=== PATIENT | male | born 1960 | race Caucasian/White ===

== ENCOUNTER 2024-04-16 12:33 | Inpatient (IN) | payer OTHER ==
[~2024-04-16] VITALS: Ht 172.7 cm; Wt 69.9 kg
[2024-04-16] MEDS ORDERED: CARV6.252 PO (20:54)
[2024-04-16] MEDS ORDERED: insulin regular (20:54)
[2024-04-16] MEDS ORDERED: SACU1TAB PO (20:54)
[2024-04-16] MEDS ORDERED: PANT40VI IV (20:54)
[2024-04-16] MEDS ORDERED: MAG-82 PO (20:54)
[2024-04-16] MEDS ORDERED: MAGN400O6 PO (20:54)
[2024-04-16] MEDS ORDERED: ZOFRAN INJ IVP (20:54)
[2024-04-16] MEDS ORDERED: accucheck (20:54)
[2024-04-16] MEDS ORDERED: ACET325T53 PO (20:54)
[2024-04-16] MEDS ORDERED: EMPA25TA PO (20:54)
[2024-04-16] MEDS ORDERED: ATOR80TA PO (20:54)
[2024-04-16] MEDS ORDERED: [UNRECOGNIZED DRUG - OTHER] IVP (20:54)
[2024-04-16] MEDS ORDERED: GEMF600T PO (20:54)
[2024-04-17] MEDS: HYDROCODONE/APAP 5-325MG TABLET PO PRN (00:08)
[2024-04-17] MEDS ORDERED: REMEDY ESSENTIAL ZINC PASTE 113 GM TOP PRN (03:30)
[2024-04-17 06:02] VITALS: BP 115/61; TEMP 97.9; O2SAT 97
[2024-04-17] MEDS ORDERED: LIDO30AD10 TD (06:39)
[2024-04-17] MEDS ORDERED: MAG HYDROX/AL HYDROX/SIMETH 30 ML LIQUID UDC PO PRN (07:00)
[2024-04-17] MEDS ORDERED: ONDANSETRON 4 MG/2 ML VIAL IV PRN (07:00)
[2024-04-17] MEDS ORDERED: ACETAMINOPHEN 325 MG TABLET-SA PATIENTS-PAIN ONLY PO PRN (07:00)
[2024-04-17] MEDS ORDERED: MAGNESIUM HYDROXIDE 30 ML LIQUID UDC PO PRN ×2 (07:00→16:15)
[2024-04-17] MEDS ORDERED: HOME MED MISCELLANEOUS XX SCH ×2 (07:00)
[2024-04-17] MEDS ORDERED: DEXTROSE 50% 50 ML DISP.SYRIN IV PRN (07:00)
[2024-04-17] MEDS: BLOOD SUGAR DIAGNOSTIC 1 EACH STRIP VI SCH (08:21)
[2024-04-17] MEDS: INSULIN REGULAR, HUMAN 300 UNIT/3 ML VIAL SQ PRN (08:23)
[2024-04-17] MEDS ORDERED: LIDOCAINE 5% PATCH TD SCH (09:00)
[2024-04-17] MEDS: CARVEDILOL 6.25 MG TABLET PO SCH (09:38)
[2024-04-17] MEDS: GEMFIBROZIL 600 MG TABLET PO SCH (09:38)
[2024-04-17] MEDS: ACETAMINOPHEN 325 MG TABLET PO PRN (09:38)
[2024-04-17] MEDS: EMPAGLIFLOZIN 25 MG TABLET PO SCH (09:39)
[2024-04-17] MEDS: SACUBITRIL/VALSARTAN 24 MG-26 TABLET PO SCH (09:39)
[2024-04-17] MEDS: LIDOCAINE 5% PATCH TD SCH (12:44)
[2024-04-17] MEDS ORDERED: ERTU15TA PO (15:09)
[2024-04-17] MEDS ORDERED: ROSU40TA PO (15:09)
[2024-04-17] MEDS ORDERED: DIPH50CA38 PO (15:09)
[2024-04-17] MEDS ORDERED: INSU100V28 SQ (15:09)
[2024-04-17] MEDS ORDERED: LORA10TA64 PO (15:09)
[2024-04-17] MEDS ORDERED: KETO30VI4 IM (15:09)
[2024-04-17] MEDS ORDERED: INSU100V7 SQ (15:09)
[2024-04-17] MEDS ORDERED: FURO80TA3 PO (15:09)
[2024-04-17] MEDS ORDERED: SPIR50TA5 PO (15:09)
[2024-04-17] MEDS ORDERED: CLOP75TA33 PO (15:12)
[2024-04-17] MEDS ORDERED: APIX2.5T PO (15:45)
[2024-04-17 15:58] VITALS: BP 95/53; TEMP 97.5; O2SAT 98
[2024-04-17] MEDS ORDERED: hydrALAZINE HCL 25 MG TABLET PO PRN (16:15)
[2024-04-17 19:05] LABS: BASOPHILS % (AUTO) 0.8 % (0.0-2.0); EOSINOPHILS # (AUTO) 0.2 K/uL (0.0-0.7); EOSINOPHILS % (AUTO) 3.7 % (0.0-7.0); HEMATOCRIT 35.6 % (36.7-47.1); HEMOGLOBIN 11.9 g/dL (12.5-16.3); LYMPHOCYTES # (AUTO) 1.2 K/uL (0.8-4.8); LYMPHOCYTES % (AUTO) 22.6 % (20.5-51.5); MEAN CORPUSCULAR HEMOGLOBIN 30.6 uug (23.8-33.4); MEAN CORPUSCULAR HGB CONC 34 g/dL (32.5-36.3); MEAN CORPUSCULAR VOLUME 91.2 fL (73.0-96.2); MONOCYTES # (AUTO) 0.5 K/uL (0.1-1.30); MONOCYTES % (AUTO) 10.1 % (0.0-11.0); NEUTROPHILS # (AUTO) 3.3 K/uL (1.8-8.9); NEUTROPHILS % (AUTO) 62.8 % (38.5-71.5); PLATELET COUNT (AUTO) 174 K/uL (152-348); RED CELL DISTRIBUTION WIDTH 14.3 % (12.1-16.2); WHITE BLOOD COUNT (AUTO) 5.2 K/uL (3.6-10.2)
[2024-04-17 19:06] LABS: DIFFERENTIAL COMMENT 1
[2024-04-17 19:18] LABS: MAGNESIUM 2.4 mg/dL (1.8-2.4); PHOSPHOROUS 4.7 mg/dL (2.5-4.9)
[2024-04-17] MEDS: APIXABAN 2.5 MG TABLET PO SCH (20:34)
[2024-04-17] MEDS: ATORVASTATIN 40 MG TABLET PO SCH (20:35)
[2024-04-17] MEDS: INSULIN GLARGINE,HUM 300 UNITS/3 ML CARTRIDGE SQ SCH (20:50)
[2024-04-17 23:03] VITALS: BP 115/61; TEMP 97.8; O2SAT 95
[2024-04-18 04:59] VITALS: BP 117/52; TEMP 98; O2SAT 98
[2024-04-18 07:18] LABS: BASOPHILS % (AUTO) 0.7 % (0.0-2.0); EOSINOPHILS # (AUTO) 0.2 K/uL (0.0-0.7); HEMATOCRIT 39.1 % (36.7-47.1); HEMOGLOBIN 13.6 g/dL (12.5-16.3); LYMPHOCYTES # (AUTO) 1.2 K/uL (0.8-4.8); LYMPHOCYTES % (AUTO) 24.4 % (20.5-51.5); MEAN CORPUSCULAR HEMOGLOBIN 31.5 uug (23.8-33.4); MEAN CORPUSCULAR HGB CONC 35 g/dL (32.5-36.3); MEAN CORPUSCULAR VOLUME 90.5 fL (73.0-96.2); MONOCYTES # (AUTO) 0.4 K/uL (0.1-1.30); MONOCYTES % (AUTO) 8.5 % (0.0-11.0); NEUTROPHILS # (AUTO) 3.2 K/uL (1.8-8.9); NEUTROPHILS % (AUTO) 62.4 % (38.5-71.5); PLATELET COUNT (AUTO) 206 K/uL (152-348); RED BLOOD CELL COUNT(AUTO) 4.32 MIL/uL (4.06-5.63); WHITE BLOOD COUNT (AUTO) 5.1 K/uL (3.6-10.2)
[2024-04-18 07:33] LABS: DIFFERENTIAL COMMENT 1
[2024-04-18 07:43] LABS: ALBUMIN 3.1 g/dL (3.4-5.0); CALCIUM 8.4 mg/dL (8.5-10.1); CREATININE 2.1 mg/dL (0.6-1.3); MAGNESIUM 2.5 mg/dL (1.8-2.4); PHOSPHOROUS 4.3 mg/dL (2.5-4.9); TOTAL PROTEIN, SERUM 6.8 g/dL (6.4-8.2)
[2024-04-18 07:56] LABS: THYROID STIMULATING HORMONE 2.221 mIU/mL (0.358-3.740)
[2024-04-18 08:16] VITALS: BP 116/70; TEMP 97.5; O2SAT 97
[2024-04-18] MEDS: CLOPIDOGREL 75 MG TABLET PO SCH (09:22)
[2024-04-18] MEDS: PANTOPRAZOLE SODIUM 40 MG TABLET.DR PO SCH (09:22)
[2024-04-18 11:40] VITALS: BP 117/63; TEMP 97.4; O2SAT 97
[2024-04-18] MEDS: ACETAMINOPHEN ES 500 MG TABLET PO PRN (11:55)
[2024-04-18 15:49] VITALS: BP 114/63; TEMP 98.3; O2SAT 95
[2024-04-18] MEDS ORDERED: TRAMADOL HCL 50 MG TABLET PO PRN (18:30)
[2024-04-18] MEDS: TRAMADOL HCL 50 MG TABLET PO PRN (18:55)
[2024-04-18 20:00] VITALS: BP 112/62; TEMP 97.5; O2SAT 97
[2024-04-19 05:30] VITALS: BP 115/47; TEMP 97.9; O2SAT 99
[2024-04-19 05:46] VITALS: BP 112/61; O2SAT 96
[2024-04-19 07:59] VITALS: BP 117/65; TEMP 97.6; O2SAT 100
[2024-04-19] MEDS: CARVEDILOL 3.125 MG TABLET PO SCH (09:07)
[2024-04-19] MEDS: SPIRONOLACTONE 25 MG TABLET PO SCH (09:10)
[2024-04-19] MEDS: FUROSEMIDE 40 MG TABLET PO SCH (10:21)
[2024-04-19 16:43] VITALS: BP 112/57; TEMP 98.4; O2SAT 96
[2024-04-19 22:01] VITALS: BP 126/68; TEMP 97.5; O2SAT 95
[2024-04-19] MEDS: LIDOCAINE 5% PATCH TD SCH (22:08)
[2024-04-20] MEDS: TRAMADOL HCL 50 MG TABLET PO PRN (00:19)
[2024-04-20 05:38] VITALS: BP 115/58; TEMP 97.8; O2SAT 97
[2024-04-20 06:12] LABS: BASOPHILS % (AUTO) 0.7 % (0.0-2.0); EOSINOPHILS # (AUTO) 0.2 K/uL (0.0-0.7); EOSINOPHILS % (AUTO) 2.9 % (0.0-7.0); HEMATOCRIT 37.6 % (36.7-47.1); HEMOGLOBIN 12.9 g/dL (12.5-16.3); LYMPHOCYTES % (AUTO) 19.4 % (20.5-51.5); MEAN CORPUSCULAR HGB CONC 34 g/dL (32.5-36.3); MEAN CORPUSCULAR VOLUME 90.6 fL (73.0-96.2); MONOCYTES # (AUTO) 0.6 K/uL (0.1-1.30); MONOCYTES % (AUTO) 11.7 % (0.0-11.0); NEUTROPHILS # (AUTO) 3.4 K/uL (1.8-8.9); NEUTROPHILS % (AUTO) 65.3 % (38.5-71.5); PLATELET COUNT (AUTO) 235 K/uL (152-348); RED BLOOD CELL COUNT(AUTO) 4.15 MIL/uL (4.06-5.63); RED CELL DISTRIBUTION WIDTH 14.3 % (12.1-16.2); WHITE BLOOD COUNT (AUTO) 5.2 K/uL (3.6-10.2)
[2024-04-20 06:21] LABS: DIFFERENTIAL COMMENT 1
[2024-04-20 06:29] LABS: CALCIUM 8.1 mg/dL (8.5-10.1); CREATININE 2.1 mg/dL (0.6-1.3); MAGNESIUM 2.4 mg/dL (1.8-2.4); POTASSIUM 4.4 mmol/L (3.5-5.1); TOTAL PROTEIN, SERUM 6.6 g/dL (6.4-8.2)
[2024-04-20] MEDS: FUROSEMIDE 40 MG TABLET PO SCH (08:59)
[2024-04-20 09:00] VITALS: BP 119/68; TEMP 98.2; O2SAT 97
[2024-04-20 16:40] VITALS: BP 116/51; TEMP 98.3; O2SAT 98
[2024-04-20] MEDS: CARVEDILOL 6.25 MG TABLET PO SCH (17:44)
[2024-04-20] MEDS ORDERED: CARVEDILOL 3.125 MG TABLET PO SCH (18:00)
[2024-04-20 20:00] VITALS: BP 103/45; TEMP 98.1; O2SAT 95
[2024-04-21 06:50] VITALS: BP 108/56; TEMP 98.6; O2SAT 99
[2024-04-21 08:00] VITALS: BP 107/46; TEMP 98.1; O2SAT 99
[2024-04-21 16:21] VITALS: BP 122/60; TEMP 98.6; O2SAT 98
[2024-04-21 20:36] VITALS: BP 121/62; TEMP 98.2; O2SAT 96
[2024-04-21] MEDS: BLOOD SUGAR DIAGNOSTIC 1 EACH STRIP VI SCH (23:00)
[2024-04-21] MEDS ORDERED: DEXTROSE 50% 50 ML DISP.SYRIN IV PRN (23:00)
[2024-04-22 06:11] VITALS: BP 115/57; TEMP 98.4; O2SAT 97
[2024-04-22 10:28] LABS: CALCIUM 8.8 mg/dL (8.5-10.1); CREATININE 2.1 mg/dL (0.6-1.3); POTASSIUM 4.4 mmol/L (3.5-5.1)
[2024-04-22] MEDS: FUROSEMIDE 40 MG TABLET PO ONE (14:23)
[2024-04-22] MEDS: HYDROCODONE/APAP 10-325 MG TABLET PO PRN (14:24)
[2024-04-22] MEDS ORDERED: MIRALAX 17 GM POWD.PACK PO PRN (15:00)
[2024-04-22 16:00] VITALS: BP 123/63; TEMP 98.3; O2SAT 97
[2024-04-22 19:55] VITALS: BP 96/51; TEMP 97.7; O2SAT 96
[2024-04-22] MEDS: INSULIN REGULAR, HUMAN 300 UNIT/3 ML VIAL SQ PRN (22:20)
[2024-04-23 05:34] VITALS: BP 119/53; TEMP 98.1; O2SAT 100
[2024-04-23 07:39] LABS: BASOPHILS % (AUTO) 0.7 % (0.0-2.0); EOSINOPHILS # (AUTO) 0.2 K/uL (0.0-0.7); EOSINOPHILS % (AUTO) 3.2 % (0.0-7.0); HEMATOCRIT 35.2 % (36.7-47.1); HEMOGLOBIN 12.2 g/dL (12.5-16.3); LYMPHOCYTES # (AUTO) 1.1 K/uL (0.8-4.8); LYMPHOCYTES % (AUTO) 23.3 % (20.5-51.5); MEAN CORPUSCULAR HEMOGLOBIN 30.9 uug (23.8-33.4); MEAN CORPUSCULAR HGB CONC 35 g/dL (32.5-36.3); MEAN CORPUSCULAR VOLUME 89.2 fL (73.0-96.2); MONOCYTES # (AUTO) 0.7 K/uL (0.1-1.30); MONOCYTES % (AUTO) 14.8 % (0.0-11.0); NEUTROPHILS # (AUTO) 2.8 K/uL (1.8-8.9); PLATELET COUNT (AUTO) 268 K/uL (152-348); RED BLOOD CELL COUNT(AUTO) 3.95 MIL/uL (4.06-5.63); WHITE BLOOD COUNT (AUTO) 4.9 K/uL (3.6-10.2)
[2024-04-23 07:40] LABS: DIFFERENTIAL COMMENT 1
[2024-04-23 07:47] LABS: ALBUMIN 3.1 g/dL (3.4-5.0); BILIRUBIN,TOTAL 1.2 mg/dL (0.2-1.0); CALCIUM 9.1 mg/dL (8.5-10.1); CREATININE 2.5 mg/dL (0.6-1.3); MAGNESIUM 2.2 mg/dL (1.8-2.4); POTASSIUM 4.2 mmol/L (3.5-5.1); TOTAL PROTEIN, SERUM 6.8 g/dL (6.4-8.2)
[2024-04-23 16:00] VITALS: BP 110/52; TEMP 98; O2SAT 98
[2024-04-23 21:02] VITALS: BP 110/59; TEMP 97.8; O2SAT 98
[2024-04-24 04:00] VITALS: BP 117/56; TEMP 98.2; O2SAT 98
[2024-04-24 08:30] VITALS: BP 121/61; TEMP 97.5; O2SAT 97
[2024-04-24 11:10] LABS: BASOPHILS % (AUTO) 0.5 % (0.0-2.0); EOSINOPHILS # (AUTO) 0.1 K/uL (0.0-0.7); HEMATOCRIT 36.4 % (36.7-47.1); HEMOGLOBIN 12.8 g/dL (12.5-16.3); LYMPHOCYTES % (AUTO) 18.7 % (20.5-51.5); MEAN CORPUSCULAR HEMOGLOBIN 31.2 uug (23.8-33.4); MEAN CORPUSCULAR HGB CONC 35 g/dL (32.5-36.3); MEAN CORPUSCULAR VOLUME 88.9 fL (73.0-96.2); MONOCYTES # (AUTO) 0.5 K/uL (0.1-1.30); NEUTROPHILS # (AUTO) 3.8 K/uL (1.8-8.9); NEUTROPHILS % (AUTO) 68.8 % (38.5-71.5); PLATELET COUNT (AUTO) 309 K/uL (152-348); RED CELL DISTRIBUTION WIDTH 14.1 % (12.1-16.2); WHITE BLOOD COUNT (AUTO) 5.5 K/uL (3.6-10.2)
[2024-04-24 11:14] LABS: DIFFERENTIAL COMMENT 1
[2024-04-24 11:19] LABS: ALBUMIN 3.5 g/dL (3.4-5.0); BILIRUBIN,TOTAL 0.9 mg/dL (0.2-1.0); CREATININE 2.9 mg/dL (0.6-1.3); MAGNESIUM 2.3 mg/dL (1.8-2.4); PHOSPHOROUS 5.8 mg/dL (2.5-4.9); POTASSIUM 4.1 mmol/L (3.5-5.1); TOTAL PROTEIN, SERUM 7.4 g/dL (6.4-8.2)
[2024-04-24 16:39] VITALS: BP 94/39; TEMP 97.7; O2SAT 98
[2024-04-24 20:01] VITALS: BP 101/43; TEMP 97.7; O2SAT 98
[2024-04-25 04:40] VITALS: BP 113/54; TEMP 97.8; O2SAT 97
[2024-04-25 07:07] LABS: BASOPHILS % (AUTO) 0.6 % (0.0-2.0); EOSINOPHILS # (AUTO) 0.1 K/uL (0.0-0.7); EOSINOPHILS % (AUTO) 1.4 % (0.0-7.0); HEMOGLOBIN 12.1 g/dL (12.5-16.3); LYMPHOCYTES # (AUTO) 0.9 K/uL (0.8-4.8); LYMPHOCYTES % (AUTO) 15.9 % (20.5-51.5); MEAN CORPUSCULAR HEMOGLOBIN 30.8 uug (23.8-33.4); MEAN CORPUSCULAR HGB CONC 35 g/dL (32.5-36.3); MEAN CORPUSCULAR VOLUME 89.2 fL (73.0-96.2); MONOCYTES # (AUTO) 0.8 K/uL (0.1-1.30); MONOCYTES % (AUTO) 13.2 % (0.0-11.0); NEUTROPHILS # (AUTO) 3.9 K/uL (1.8-8.9); NEUTROPHILS % (AUTO) 68.9 % (38.5-71.5); PLATELET COUNT (AUTO) 297 K/uL (152-348); RED BLOOD CELL COUNT(AUTO) 3.93 MIL/uL (4.06-5.63); RED CELL DISTRIBUTION WIDTH 14.1 % (12.1-16.2); WHITE BLOOD COUNT (AUTO) 5.7 K/uL (3.6-10.2)
[2024-04-25 07:13] LABS: DIFFERENTIAL COMMENT 1
[2024-04-25 07:28] LABS: ALANINE AMINOTRANSFERASE < 6 U/L (16-63); ALBUMIN 3.3 g/dL (3.4-5.0); ALKALINE PHOSPHATASE 124 U/L (50-136); ASPARTATE AMINOTRANSFERASE 14 U/L (15-37); BILIRUBIN,TOTAL 0.8 mg/dL (0.2-1.0); CALCIUM 9.3 mg/dL (8.5-10.1); CARBON DIOXIDE 28 mmol/L (21-32); CHLORIDE 94 mmol/L (98-107); CREATINE KINASE, TOTAL 93 U/L (39-308); CREATININE 2.7 mg/dL (0.6-1.3); GLUCOSE 196 mg/dL (74-106); MAGNESIUM 2.4 mg/dL (1.8-2.4); PHOSPHOROUS 5.7 mg/dL (2.5-4.9); POTASSIUM 3.9 mmol/L (3.5-5.1); SODIUM SERUM 134 mmol/L (136-145); TOTAL PROTEIN, SERUM 7.2 g/dL (6.4-8.2); UREA NITROGEN, BLOOD 60 mg/dL (7-18)
[2024-04-25 08:14] VITALS: BP 122/62; TEMP 98.3; O2SAT 95
[2024-04-25 16:00] VITALS: BP 118/49; TEMP 98.5; O2SAT 98
[2024-04-25] MEDS: TRAMADOL HCL 50 MG TABLET PO PRN (17:50)
[2024-04-25 22:53] VITALS: BP 89/38; TEMP 98.3; O2SAT 98
[2024-04-26 00:15] VITALS: BP 115/58; TEMP 98.6; O2SAT 100
[2024-04-26 05:31] VITALS: BP 106/57; TEMP 98.4; O2SAT 97
[2024-04-26 08:20] VITALS: BP 106/43; TEMP 97.5; O2SAT 98
[2024-04-26 10:57] LABS: BASOPHILS % (AUTO) 0.6 % (0.0-2.0); EOSINOPHILS # (AUTO) 0.1 K/uL (0.0-0.7); HEMATOCRIT 36.7 % (36.7-47.1); HEMOGLOBIN 12.7 g/dL (12.5-16.3); LYMPHOCYTES # (AUTO) 1.1 K/uL (0.8-4.8); MEAN CORPUSCULAR HEMOGLOBIN 31.1 uug (23.8-33.4); MEAN CORPUSCULAR HGB CONC 35 g/dL (32.5-36.3); MEAN CORPUSCULAR VOLUME 89.8 fL (73.0-96.2); MONOCYTES # (AUTO) 0.8 K/uL (0.1-1.30); MONOCYTES % (AUTO) 11.8 % (0.0-11.0); NEUTROPHILS # (AUTO) 4.8 K/uL (1.8-8.9); NEUTROPHILS % (AUTO) 69.6 % (38.5-71.5); PLATELET COUNT (AUTO) 312 K/uL (152-348); RED BLOOD CELL COUNT(AUTO) 4.09 MIL/uL (4.06-5.63); RED CELL DISTRIBUTION WIDTH 13.9 % (12.1-16.2); WHITE BLOOD COUNT (AUTO) 6.9 K/uL (3.6-10.2)
[2024-04-26 11:02] LABS: DIFFERENTIAL COMMENT 1
[2024-04-26 11:10] LABS: CALCIUM 9.2 mg/dL (8.5-10.1); CREATININE 2.6 mg/dL (0.6-1.3); POTASSIUM 4.1 mmol/L (3.5-5.1)
[2024-04-26] MEDS: MEDIHONEY= THERAHONEY 1.5 OZ TUBE TOP SCH (12:11)
[2024-04-26 15:58] VITALS: BP 116/48; TEMP 97.6; O2SAT 100
[2024-04-26 20:37] VITALS: BP 104/54; TEMP 98.5; O2SAT 97
[2024-04-27 06:00] VITALS: BP 111/53; TEMP 98.3; O2SAT 98
[2024-04-27 06:06] LABS: PTH, INTACT 48 pg/mL (15-65)
[2024-04-27 08:01] LABS: CALCIUM 9.1 mg/dL (8.5-10.1); CREATININE 2.3 mg/dL (0.6-1.3); POTASSIUM 3.9 mmol/L (3.5-5.1)
[2024-04-27 09:08] VITALS: BP 121/41
[2024-04-28 13:07] LABS: A/G RATIO 0.9 (0.7-1.7); ALPHA-1-GLOBULIN 0.4 g/dL (0.0-0.4); ALPHA-2-GLOBULIN 0.9 g/dL (0.4-1.0); BETA GLOBULIN 1.2 g/dL (0.7-1.3); GAMMA GLOBULIN 0.7 g/dL (0.4-1.8); GLOBULIN, TOTAL 3.2 g/dL (2.2-3.9); M-SPIKE Not Observed g/dL (Not Observed)
== END 2024-04-27 14:55 | disposition home health service (06) | DRG 862 ==
PROVIDERS: ADMIT Physical Medicine & Rehabilitation; ATTEND Physical Medicine & Rehabilitation
DX: S72.142D Displaced intertrochanteric fracture of left femur, subsequent encounter for closed fracture with routine healing (principal); N17.0 Acute kidney failure with tubular necrosis; I50.23 Acute on chronic systolic (congestive) heart failure; D68.59 Other primary thrombophilia; E87.1 Hypo-osmolality and hyponatremia; I27.20 Pulmonary hypertension, unspecified; E11.22 Type 2 diabetes mellitus with diabetic chronic kidney disease; D64.9 Anemia, unspecified; E11.65 Type 2 diabetes mellitus with hyperglycemia; I13.0 Hypertensive heart and chronic kidney disease with heart failure and stage 1 through stage 4 chronic kidney disease, or unspecified chronic kidney disease; I48.0 Paroxysmal atrial fibrillation; N18.9 Chronic kidney disease, unspecified; M89.8X9 Other specified disorders of bone, unspecified site; W01.0XXD Fall on same level from slipping, tripping and stumbling without subsequent striking against object, subsequent encounter; E78.5 Hyperlipidemia, unspecified; I25.10 Atherosclerotic heart disease of native coronary artery without angina pectoris; I25.5 Ischemic cardiomyopathy; S30.0XXD Contusion of lower back and pelvis, subsequent encounter; Z79.01 Long term (current) use of anticoagulants; Z79.4 Long term (current) use of insulin; Z83.3 Family history of diabetes mellitus; Z90.49 Acquired absence of other specified parts of digestive tract; Z95.1 Presence of aortocoronary bypass graft; Z98.61 Coronary angioplasty status; X58.XXXD Exposure to other specified factors, subsequent encounter; F17.210 Nicotine dependence, cigarettes, uncomplicated
CPT/HCPCS: 36415; 71045; 73502; 76770; 82652; 83550; 83735; 83970; 84100; 84155; 84165; 84443; 85025; 85610; 97535-GO-CO; A4663; A6213; A9150; J1815